=== PATIENT | female | born 1975 | race Caucasian/White ===

== ENCOUNTER 2019-12-26 07:59 | Outpatient (CLI) | payer BC, SELFPAY ==
--- NOTE | ~2019-12-26 | MM_ITS ---
EXAMINATION: MM screening [facility] BI w jet HISTORY: Screening mammogram TECHNIQUE: Craniocaudal and mediolateral oblique 3-D tomosynthesis images were obtained and synthetic 2-D images were generated. CAD analysis was submitted and interpreted. COMPARISON: 06/30/2018, 05/17/2017 BREAST PARENCHYMAL COMPOSITION: There are scattered areas of fibroglandular density. FINDINGS: There is no evidence of suspicious mass, calcification, or architectural distortion to sugg est malignancy in either breast. There has been no suspicious interval change. IMPRESSION: 1. No mammographic evidence of malignancy. 2. Recommend routine screening mammography in one year. BI-RADS Category 1: Negative Reviewed, dictated and finalized at location A. USION OPERATOR
== END 2019-12-26 08:00 | disposition home or self-care (01) ==
PROVIDERS: PCP Internal Medicine; Visit Provider Obstetrics & Gynecology
DX: Z12.31 Encounter for screening mammogram for malignant neoplasm of breast (principal)
CPT/HCPCS: 77063; 77067

== ENCOUNTER 2020-08-11 09:02 | Outpatient (CLI) | payer BC, SELFPAY ==
--- NOTE | ~2020-08-11 | US_ITS ---
EXAMINATION: US thyroid DATE: 08/11/2020 09:33 INDICATION: Nontoxic goiter. TECHNIQUE: Multiple ultrasound images of the thyroid were obtained. COMPARISON: 12/01/2017 and 12/26/2012 FINDINGS: The right thyroid lobe measures 4.2 x 2.3 x 0.9 cm. The left thyroid lobe measures 3.5 x 1.4 x 1.0 c m. No significant interval change in multiple bilateral thyroid nodules. 1.6 cm wider than tall, pred ominantly solid hypoechoic nodule with smooth margins and with multiple internal echogenic foci. (TI- RADS 5, highly suspicious , FNA if >=1.0 cm, annual followup is >0.5 cm). There is a second 8 mm wide r than tall solid hypoechoic nodule with smooth margins and without echogenic foci in the more inferi or right thyroid (TI-RADS 4, moderately suspicious , FNA if >=1.5 cm, annual followup is >=1 cm). Fin ally there is a more lateral 9 mm similar-appearing right thyroid nodule with echogenic foci, TI RADS 5. 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 This is not significant changed in size since prior biopsy dated 12/26/2012 which demonstrated benign pathology. There is normal echotexture, echogenicity and vascular flow thro ughout the thyroid gland. IMPRESSION: 1. Multinodular goiter including a couple TI RADS 5 nodules measuring 1.6 cm in the right thyroid lob e and 1.2 cm in the left thyroid lobe. Although both of these nodules would meet criteria for recomme ndation of biopsy, they have remain stable since 2012, the left-sided nodule also with previous benig n biopsy. Given the interval stability would consider continued ultrasound follow-up. Reviewed, dictated and finalized at location A. IMPRESSION: 1. Multinodular goiter including a couple TI RADS 5 nodules measuring 1.6 cm in the right thyroid lobe and 1.2 cm in the left thyroid lobe. Although both of t hese nodules would meet criteria for recommendation of biopsy, they have remain stable since 2012, the left-sided nodule also with previous benign biopsy. Giv en the interval stability would consider continued ultrasound follow-up.
== END 2020-08-11 09:03 | disposition home or self-care (01) ==
LOC: ANHIMG 09:08
PROVIDERS: PCP Internal Medicine; Visit Provider Nurse Practitioner
DX: E04.2 Nontoxic multinodular goiter (principal)
CPT/HCPCS: 76536

== ENCOUNTER 2021-01-21 09:25 | Outpatient (CLI) | payer BC, SELFPAY ==
--- NOTE | ~2021-01-21 | MM_ITS ---
EXAMINATION: MM screening [facility] BI w jet HISTORY: Screening TECHNIQUE: Craniocaudal and mediolateral oblique 3-D tomosynthesis images were obtained and synthetic 2-D images were generated. CAD analysis was submitted and interpreted. COMPARISON: Comparison to multiple prior studies sequentially, with oldest reviewed study dated 05/2017. BREAST PARENCHYMAL COMPOSITION: There are scattered areas of fibroglandular density. FINDINGS: There is no evidence of suspicious mass, calcification, or architectural distortion to sugg est malignancy in either breast. There has been no suspicious interval change. IMPRESSION: 1. No mammographic evidence of malignancy. 2. Recommend routine screening mammography in one year. BI-RADS Category 1: Negative Reviewed, dictated and finalized at location A. LEADER
== END 2021-01-21 09:26 | disposition home or self-care (01) ==
LOC: ANHIMG 09:27
PROVIDERS: PCP Internal Medicine; Visit Provider Obstetrics & Gynecology
DX: Z12.31 Encounter for screening mammogram for malignant neoplasm of breast (principal)
CPT/HCPCS: 77063; 77067

== ENCOUNTER 2021-09-14 11:05 | Outpatient (CLI) | payer BC, SELFPAY ==
--- NOTE | ~2021-09-14 | US_ITS ---
US renal BI 09/14/2021 11:40 Procedure: Realtime transabdominal ultrasound of the kidneys and bladder. Indication: Renal cysts Comparison: Ultrasound dated 11/21/2017 Findings: Renal echotexture is normal bilaterally without hydronephrosis, contour deforming mass or r enal calculus. There are bilateral renal cysts including a 1.6 cm cyst at the superior pole of the ri ght kidney and 1.1 cm cyst of the left kidney. The right kidney measures 8.6 cm and left kidney measu res 9.9 cm. Bladder within normal limits. Impression: 1: Bilateral renal cysts. Reviewed, dictated and finalized at location A. Impression: 1: Bilateral renal cysts.
== END 2021-09-14 11:06 | disposition home or self-care (01) ==
PROVIDERS: PCP Internal Medicine; Visit Provider Internal Medicine
DX: R79.89 Other specified abnormal findings of blood chemistry (principal); N28.1 Cyst of kidney, acquired
CPT/HCPCS: 76775

== ENCOUNTER 2022-06-10 09:53 | Outpatient (CLI) | payer BC, SELFPAY ==
--- NOTE | ~2022-06-10 | MM_ITS ---
EXAMINATION: MM screening [facility] BI w jet HISTORY: Screening mammogram TECHNIQUE: Craniocaudal and mediolateral oblique 3-D tomosynthesis images were obtained and synthetic 2-D images were generated. CAD analysis was submitted and interpreted. COMPARISON: 01/21/2021, 12/26/2019, 06/20/2018 bilateral screening mammogram examination BREAST PARENCHYMAL COMPOSITION: The breasts are almost entirely fatty. FINDINGS: There is no evidence of suspicious mass, calcification, or architectural distortion to sugg est malignancy in either breast. There has been no suspicious interval change. IMPRESSION: 1. No mammographic evidence of malignancy. 2. Recommend routine screening mammography in one year. BI-RADS Category 1: Negative Reviewed, dictated and finalized at location A.
== END 2022-06-10 09:54 | disposition home or self-care (01) ==
LOC: ANHIMG 09:54
PROVIDERS: PCP Internal Medicine; Visit Provider Obstetrics & Gynecology
DX: Z12.31 Encounter for screening mammogram for malignant neoplasm of breast (principal)
CPT/HCPCS: 77063; 77067

== ENCOUNTER 2023-04-21 10:18 | Outpatient (CLI) | payer BC, SELFPAY ==
--- NOTE | ~2023-04-21 | US_ITS ---
Renal-Bladder ultrasound Clinical History: Renal cyst Technique: Real-time sonographic imaging of the kidneys and urinary bladder was performed. Findings: The right kidney measures 9.9 cm in length and the left kidney measures 10.2 cm. There is n o hydronephrosis or renal calculus identified. Renal cortical echogenicity is within normal limits. R ight upper pole renal cyst measures 2.3 cm in diameter. The urinary bladder is moderately distended at the time of this exam. No intraluminal echoes are iden tified. No abnormal wall thickening is seen. Impression: 2.3 cm right renal cyst. Reviewed, dictated and finalized at location . GER IT TRAINING Impression: 2.3 cm right renal cyst.
--- NOTE | ~2023-04-21 | US_ITS ---
EXAMINATION: US thyroid DATE: 04/21/2023 11:46 INDICATION: Nontoxic goiter, unspecified. TECHNIQUE: Multiple ultrasound images of the thyroid were obtained. COMPARISON: Ultrasound 08/11/2020, 12/26/12, 11/21/17 FINDINGS: The right thyroid lobe measures 4.3 x 1.2 x 1.7 cm. The left thyroid lobe measures 3.8 x 1.1 x 1.2 c m. In the right thyroid lobe, there is a 1.7 cm mixed cystic and solid, hypoechoic, wider than tall nodule with smooth margin without echogenic foci (TI-RADS TR3) with solid portion stable from 11/21/17 , likely benign. In the right thyroid lobe, there is a 7 mm solid, hypoechoic, wider than tall nodule with smooth margin without echogenic foci (TR4). In the left thyroid lobe, there is an 11 mm solid, hypoechoic, wider than tall nodule with lobulated margin and punctate echogenic foci (TR5), stable fr om 12/26/12 when biopsy was benign. IMPRESSION: 1. Thyroid nodules, likely not clinically significant. No follow-up is needed. Reviewed, dictated and finalized at location E. APPLICATIONS DEVELOPER
== END 2023-04-21 10:19 | disposition home or self-care (01) ==
PROVIDERS: PCP Nurse Practitioner; Visit Provider Nurse Practitioner
DX: E04.2 Nontoxic multinodular goiter (principal); N28.1 Cyst of kidney, acquired
CPT/HCPCS: 76536; 76775

== ENCOUNTER 2023-07-26 09:11 | Outpatient (CLI) | payer BC, SELFPAY ==
--- NOTE | ~2023-07-26 | MM_ITS ---
EXAMINATION: MM screening [facility] BI w jet HISTORY: Screening TECHNIQUE: Craniocaudal and mediolateral oblique 3-D tomosynthesis images were obtained and synthetic 2-D images were generated. CAD analysis was submitted and interpreted. COMPARISON: Comparison to multiple prior studies sequentially, with oldest reviewed study dated 05/2017. BREAST PARENCHYMAL COMPOSITION: Not dense: There are scattered areas of fibroglandular density. FINDINGS: There is no evidence of suspicious mass, calcification, or architectural distortion to sugg est malignancy in either breast. There has been no suspicious interval change. IMPRESSION: 1. No mammographic evidence of malignancy. 2. Recommend routine screening mammography in one year. BI-RADS Category 1: Negative Reviewed, dictated and finalized at location B.
== END 2023-07-26 09:12 | disposition home or self-care (01) ==
LOC: ANHIMG 09:12
PROVIDERS: PCP Nurse Practitioner; Visit Provider Obstetrics & Gynecology
DX: Z12.31 Encounter for screening mammogram for malignant neoplasm of breast (principal)
CPT/HCPCS: 77063; 77067

== ENCOUNTER 2024-01-16 01:09 | Day surgery (SDC) | payer BC, SELFPAY ==
[2023-08-04 10:32] VITALS: BMI 26.6
[2024-01-01 11:28] VITALS: BMI 26.6
[2024-01-16 07:35] VITALS: BP 116/97; PULSE 106; RESP 18; TEMP 36.5; O2SAT 100
[2024-01-16 07:40] LABS: BEDSIDEPREGUCG Negative (Negative)
[2024-01-16] MEDS: LACTATED RINGERS 1,000 ML 150 ML IV CONT (07:47)
--- NOTE | 2024-01-16 08:31 | PM.HPGS ---
History of Present Illness History of Present Illness Consent: Risks, benefits, and alternatives have been discussed and questions answered. Patient agrees to proceed with procedure. Chief complaint: Neoplasm screening Narrative: Mercy Garcia is a 48 year old female here for screening colonoscopy, had one about 20 years ago around time when was diagnosed with celiac Review of Systems Review of Systems: All systems reviewed & are unremarkable except as noted in HPI and below PMFSH Past Medical History Medical History Benign essential hypertension Goiter Injury of finger of left hand Insomnia disorder Renal cysts, acquired, bilateral Surgical History Surgical History Delivery by section xs 2 Family History Family History Mother Hypertension A-fib Social History Social History Smoking status: Never smoker Alcohol intake: current Drinks per week: 2 Alcohol use details: Socially Substance use: never Substance use type: does not use Do You Feel Safe in your Home?: Yes Lack of Transportation: No Lack of Food: Never True Current Housing: I Have Housing Concerned About Future Housing: No Difficulty Paying Gas/Electric Bills: No Difficulty Paying for Meds: No Currently Unemployed: No Education: High School Diploma/GED Difficulty w/ Childcare or Family Care: No Living arrangements: other Additional living arrangements comments: with sp Occupation/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 Gender identity (if verbalized by the patient): Female Sexual Orientation (if Verbalized by the Patient): Straight or Heterosexual Spiritual care concerns: Yes Meds Home Medications and Allergies Home Medications Medication Instructions Recorded Confirmed Type desogestrel-e.estradiol 0.15 1 tablet PO Q24H #112 tabs 05/17/23 01/16/24 Rx mg-0.02 mg(21)/e.estrad 0.01 mg(5) tablet (Kariva (28)) diltiazem HCl 180 mg See Rx Instructions .Route 10/09/23 01/16/24 Rx capsule,extended release 24 hr .COMPLEX #90 caps famotidine 20 mg tablet 20 mg PO DAILY #90 tabs 10/20/23 01/16/24 Rx lisinopril 20 mg tablet See Rx Instructions .Route 01/15/24 01/16/24 Rx .COMPLEX #90 tabs Allergies Allergy/AdvReac Type Severity Reaction Status Date / Time No Known Allergies Allergy Mild Verified 01/16/24 07:27 Vital Signs Vital Signs - 24 hr 01/16/24 07:35 Temperature 97.7 F Pulse Rate 106 H Respiratory Rate 18 Blood Pressure 116/97 H Pulse Oximetry 100 Oxygen Delivery Room Air Exam Const: General: comfortable and no acute distress HENMT: Face/Nose/Sinus: Normal nares present Eyes: General: appearance normal, both eyes and all related structures Neck: Neck: no JVD Resp: Auscultation: clear to auscultation bilaterally Cardio: Rate: regular rate Rhythm: regular rhythm GI: Inspection: non-distended GI Palp: Yes Soft to palpation Skin: General skin exam: normal color Neuro: General: gait normal Speech: normal speech Extrem: General: normal to inspection Psych: Mental Status: mental status grossly normal Assessment and Plan Assessment and plan (1) Colon cancer screening: Code(s): Z12.11 - Encounter for screening for malignant neoplasm of colon Status: Resolved Assessment and Plan: colonoscopy
--- NOTE | 2024-01-16 08:34 | P.PNAN_ITS ---
Anes - Initial Pre Proc Eval Procedure: Operation Date: 01/16/24 08:30 Proposed Procedures p Screening Colonoscopy - Dino Francisco MD Date/Time: 01/16/24 08:34 Surgeon: Dino Francisco MD Pre Op Diagnosis: Neoplasm screening Patient Data Age: 48 Gender: F Height: 1.63 m Weight: 72.4 kg Last Vital Signs Temp 36.5 C 01/16/24 07:35 Pulse 106 H 01/16/24 07:35 Resp 18 01/16/24 07:35 BP 116/97 H 01/16/24 07:35 Pulse Ox 100 01/16/24 07:35 O2 Del Method Room Air 01/16/24 07:35 Allergies Allergy/AdvReac Type Severity Reaction Status Date / Time No Known Allergies Allergy Mild Verified 01/16/24 07:27 Home Medications Medication Instructions Recorded Confirmed Type desogestrel-e.estradiol 0.15 1 tablet PO Q24H #112 tabs 05/17/23 01/16/24 Rx mg-0.02 mg(21)/e.estrad 0.01 mg(5) tablet (Kariva (28)) diltiazem HCl 180 mg See Rx Instructions .Route 10/09/23 01/16/24 Rx capsule,extended release 24 hr .COMPLEX #90 caps famotidine 20 mg tablet 20 mg PO DAILY #90 tabs 10/20/23 01/16/24 Rx lisinopril 20 mg tablet See Rx Instructions .Route 01/15/24 01/16/24 Rx .COMPLEX #90 tabs Laboratory Tests 01/16/24 07:35 POC Urine HCG, Qual Negative (Negative) Patient hx anesthesia problems: none Family hx anesthesia problems: none Results Review: All pre-operative results and documents have been reviewed as part of the pre- operative evaluation. FORMERLY [facility], [facility] Past Medical History Medical History Benign essential hypertension Goiter Injury of finger of left hand Insomnia disorder Renal cysts, acquired, bilateral Surgical History Surgical History Delivery by section xs 2 Family History Family History Mother Hypertension A-fib Social History Social History Smoking status: Never smoker Alcohol intake: current Drinks per week: 2 Alcohol use details: Socially Substance use: never Substance use type: does not use Do You Feel Safe in your Home?: Yes Lack of Transportation: No Lack of Food: Never True Current Housing: I Have Housing Concerned About Future Housing: No Difficulty Paying Gas/Electric Bills: No Difficulty Paying for Meds: No Currently Unemployed: No Education: High School Diploma/GED Difficulty w/ Childcare or Family Care: No Living arrangements: other Additional living arrangements comments: with sp 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/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 Gender identity (if verbalized by the patient): Female Sexual Orientation (if Verbalized by the Patient): Straight or Heterosexual Spiritual care concerns: Yes Anes - Eval Final PreProcedure Day of Procedure 01/16/24 08:34 Patient weight: overweight Heart: regular rate and rhythm Lungs: clear to auscultation Airway: Mallampati scale class II Neurological: alert and oriented Last oral intake: >/= 8 hours ASA classification: II Emergent: no Anesthetic plan: proceed Anesthesia type and monitoring: general GIVS and standard monitoring Results Review: All pre-operative results and documents have been reviewed as part of the pre- operative evaluation. Informed Consent: The patient's anesthetic plan and its attendant risks and benefits were discussed with the patient/family/POA. Questions were solicited and answers provided to the satisfaction of the patient/family/POA.
[2024-01-16 08:51] VITALS: BP 120/82; PULSE 81; RESP 19; O2SAT 100
[2024-01-16 09:01] VITALS: BP 124/81; PULSE 75; RESP 15; O2SAT 100
[2024-01-16 09:11] VITALS: BP 132/93; PULSE 76; RESP 17; O2SAT 100
== END 2024-01-16 09:16 | disposition home or self-care (01) ==
PROVIDERS: Anesthesiology; PCP Nurse Practitioner; Visit Provider Internal Medicine Gastroenterology
PROC: 0DJD8ZZ Inspection of Lower Intestinal Tract, Via Natural or Artificial Opening Endoscopic (ICD-10-PCS; CPT 45378; principal; 2024-01-16 08:30)
DX: Z12.11 Encounter for screening for malignant neoplasm of colon (principal); K64.8 Other hemorrhoids; K57.30 Diverticulosis of large intestine without perforation or abscess without bleeding; I10 Essential (primary) hypertension; G47.00 Insomnia, unspecified; Z98.890 Other specified postprocedural states; Z82.49 Family history of ischemic heart disease and other diseases of the circulatory system
CPT/HCPCS: 45378; J2704; J7120

== ENCOUNTER 2024-12-24 09:52 | Emergency (ER) | payer BC, SELFPAY ==
--- NOTE | 2024-12-24 10:00 | ED_ITS ---
HPI - URI/Sore Throat General Chief Complaint: Upper Respiratory Infection Stated Complaint: SORE THROAT/FEVER/HEADACHE/BURNING CHEST Time Seen by Provider: 12/24/24 10:28 Source: patient and RN notes reviewed Mode of arrival: ambulatory Limitations: no limitations History of Present Illness HPI Narrative: 49-year-old female presents with concern of for 5 day history of sore throat, cough, fever. Reports fever up to 100. Reports breathing cold air makes her chest hurt and she has having she is taking she reports she recently traveled but denies known sick contacts. MD elicited complaint: cough and sore throat Related Data Allergies Allergy/AdvReac Type Severity Reaction Status Date / Time No Known Allergies Allergy Mild Verified 12/24/24 10:00 Review of Systems Review of Systems: CONSTITUTIONAL: Reports malaise, fever. EYES: Denies visual changes, redness, or discharge. ENT: Reports rhinorrhea, congestion, and sore throat. CARDIOVASCULAR: Denies chest pain, palpitations, or edema. RESPIRATORY: Reports cough, exertional dyspnea. GASTROINTESTINAL: Denies abdominal pain, nausea, vomiting, diarrhea SKIN: Denies rash or itching. MUSCULOSKELETAL: Reports myalgia. NEUROLOGIC: Denies headache. All systems reviewed & are unremarkable except as noted in HPI and below PMFSH Past Medical History Medical History Benign essential hypertension Goiter Insomnia disorder Renal cysts, acquired, bilateral Injury of finger of left hand Surgical History Surgical History Delivery by section xs 2 Family History Family History Mother Hypertension A-fib Social History Social History (Updated 07/05/24 @ 10:25 by Lorne Lantigua APRN) Alcohol intake: current Drinks per week: 2 Alcohol use details: Socially Substance use: never Substance use type: does not use Do You Feel Safe in your Home?: Yes Lack of Transportation: No Lack of Food: Never True Current Housing: I Have Housing Concerned About Future Housing: No Difficulty Paying Gas/Electric Bills: No Difficulty Paying for Meds: No Currently Unemployed: No Education: High School Diploma/GED Difficulty w/ Childcare or Family Care: No Living arrangements: other Additional living arrangements comments: with sp Occupation/Education: occupation 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 There is no relevant family history pertinent to the presenting complaint Exam Narrative: GENERAL: Well-appearing, well-nourished, and in no acute distress. HEAD: Normocephalic EYES: PERRLA, conjunctivae clear ENT: Nares clear, turbinates edematous and erythematous, clear discharge. Mucous membranes moist. TM pearly rangel with dull light reflex bilaterally; no tragal tenderness. Oropharynx not erythematous without lesions. Tonsils not enlarged and without exudate, no drooling, no trismus, uvula midline. Hoarse voice NECK: Supple. No lymphadenopathy CHEST: Clear to auscultation, breath sounds equal. No wheezing, rhonchi, rales, or stridor. No respiratory distress, speaks in full sentences. Cough noted HEART: Regular rate and rhythm. No murmur heard. SKIN: Warm, dry, no rash. NEURO: Alert and oriented x3. PSYCH: Normal mood and affect Course Course Emergency Course: Patient is aware of diagnosis, understands and agrees to treatment plan. Anticipatory guidance given. Patient agrees to follow-up as directed and is aware of reasons to seek care at the emergency department. Portions of this record may have been created with voice recognition software Level of Care: Express Care Visit Vital Signs Vital signs: Reviewed. MDM - URI/Sore Throat MDM Narrative Medical decision making narrative: Differential diagnosis considered: Bhatt virus, strep pharyngitis, allergic rhinitis, upper respiratory tract infection, sinusitis, rhinosinusitis, nasopharyngitis. viral pharyngitis, otitis media, otitis externa, pneumonia, bronchitis, viral cough syndrome, viral syndrome, and influenza. Exam findings show no acute concerns or changes; patient is non-toxic appearing and is in no distress. Patient is appropriate for outpatient treatment and follow-up. Lab Data Attestation: I reviewed the patient's lab results. Critical Care Time Critical Care Time Critical Care Time: No Discharge Plan Discharge Clinical Impression: Bronchitis Patient Disposition: Home Condition: Stable Instructions: Acute Bronchitis (ED) Additional Instructions: Viral illness may last between 7-21 days; antibiotics do not cure viral illness and are NOT recommended at this time. Recommend antihistamine such as Benadryl at night time and Zyrtec or [place] during the day Cough syrup may cause drowsiness; avoid driving or take it at night time. Also, recommend symptomatic treatment includes: rest, fluids, and increase humidity of the air at home. Recommend Acetaminophen as directed on the bottle to reduce fever, pain, headache. Avoid smoking/second-hand smoke. Please schedule a follow-up visit with your personal physician for further evaluation and treatment within 3-5days. Including recheck and discussion of your blood pressure. If your symptoms persist, change or worsen significantly before you can contact your personal physician then please, without delay, go to the emergency department for further evaluation. Patient Language: Liberian Prescriptions: New promethazine-DM 6.25-15 mg/5 mL syrup 5 ml PO Q4-6H PRN (Reason: cough) Qty: 120 0RF prednisone 20 mg tablet 40 mg PO DAILY 5 Days Qty: 10 0RF No Action famotidine 20 mg tablet 20 mg PO DAILY Qty: 90 1RF lisinopril 20 mg tablet See Rx Instructions .ROUTE .COMPLEX Qty: 90 3RF Dose Instruction: TAKE 1 TABLET BY MOUTH EVERY DAY Rx Instructions: TAKE 1 TABLET BY MOUTH EVERY DAY desog-e.estradiol/e.estradiol [Kariva (28)] 0.15-0.02 mgx21 /0.01 mg x 5 tablet See Rx Instructions .ROUTE .COMPLEX Qty: 112 4RF Dose Instruction: TAKE 1 TABLET BY MOUTH EVERY 24 HOURS CONTINUOUSLY SKIPPING [place]ACE[place] TO SKIP CYCLES Rx Instructions: TAKE 1 TABLET BY MOUTH EVERY 24 HOURS CONTINUOUSLY SKIPPING [place]ACE[place] TO SKIP CYCLES diltiazem HCl 180 mg capsule,extended release 24hr See Rx Instructions .ROUTE .COMPLEX Qty: 90 1RF Dose Instruction: TAKE 1 CAPSULE BY MOUTH EVERY DAY Rx Instructions: TAKE 1 CAPSULE BY MOUTH EVERY DAY Follow-up/Referrals: Panchito Mendez DO [Primary Care Provider, Internal Medicine] Stand Alone Forms: Work/School Release IP Time of Disposition: 10:34
[2024-12-24 10:05] VITALS: BP 123/77; PULSE 96; RESP 16; TEMP 36.8; O2SAT 98
[2024-12-24 10:25] LABS: EDCOVIDSCREEN Negative (Negative); EDINFLUASCREEN Negative (Negative); EDINFLUBSCREEN Negative (Negative); EDSTREPNEGPOS1 Negative (Negative)
== END 2024-12-24 10:44 | disposition home or self-care (01) ==
PROVIDERS: Emergency Provider Nurse Practitioner; PCP Internal Medicine
DX: J40 Bronchitis, not specified as acute or chronic (principal); Z20.822 Contact with and (suspected) exposure to COVID-19; I10 Essential (primary) hypertension; E04.9 Nontoxic goiter, unspecified
CPT/HCPCS: 87081; 87426; 87804; 87880; 99213; G0463